=== PATIENT | female | born 2000 | race Hispanic/Latino ===

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

== ENCOUNTER 2020-09-13 00:01 | Emergency (ER) | payer MEDICAID ==
[~2020-09-13] VITALS: Ht 154.9 cm; Wt 52.2 kg
[~2020-09-13 00:01] MED LIST: PREN1TAB80 PO
[2020-09-13] MEDS ORDERED: OCTYL 2-CYANOACRYLATE 1 EACH TP ONE (02:45)
[2020-09-13 03:00] VITALS: BP 127/55
== END 2020-09-13 03:18 | disposition home or self-care (01) ==
LOC: EDH 01:25
DX: S01.81XA Laceration without foreign body of other part of head, initial encounter (principal); W22.8XXA Striking against or struck by other objects, initial encounter; Y93.89 Activity, other specified; Y92.89 Other specified places as the place of occurrence of the external cause; Y99.8 Other external cause status
CPT/HCPCS: 12011; 99282

== ENCOUNTER 2023-09-16 17:29 | Emergency (ER) | payer MEDICAID ==
[~2023-09-16] VITALS: Ht 152.4 cm; Wt 72.6 kg
[2023-09-16 18:02] LABS: BASOPHILS # (AUTO) 0.01 K/uL (0.00-0.20); BASOPHILS % (AUTO) 0.1 % (0.0-5.0); EOSINOPHILS # (AUTO) 0.07 K/uL (0.00-0.70); EOSINOPHILS % (AUTO) 0.7 % (0.0-8.0); HEMATOCRIT 38.6 % (36-48); IMMATURE GRANULOCYTE ABSOLUTE 0.03 K/uL (0-1); LYMPHOCYTES # (AUTO) 0.7 K/uL (1.0-4.8); LYMPHOCYTES % (AUTO) 7.1 % (21.0-51.0); MEAN CORPUSCULAR HEMOGLOBIN 27.7 pg (27.0-33.0); MEAN CORPUSCULAR HGB CONC 33.4 g/dL (32.0-36.0); MONOCYTES # (AUTO) 0.5 K/uL (0.1-1.0); MONOCYTES % (AUTO) 4.7 % (3.0-13.0); NEUTROPHILS % (AUTO) 87.1 % (40.0-77.0); PLATELET COUNT (AUTO) 185 K/uL (130-400); RED BLOOD CELL COUNT(AUTO) 4.65 MIL/uL (4.00-5.50); RED CELL DISTRIBUTION WIDTH 13.8 % (11.0-15.5); WHITE BLOOD COUNT (AUTO) 10.3 K/uL (4.8-10.8)
[2023-09-16 18:22] LABS: APPEARANCE,URINE CLEAR (CLEAR); BILIRUBIN,URINE NEGATIVE (NEGATIVE); COLOR,URINE LIGHT-YELLOW (YELLOW); GLUCOSE, URINE (UA) NEGATIVE (NEGATIVE); KETONES,URINE NEGATIVE (NEGATIVE); LEUKOCYTE ESTERASE ,URINE NEGATIVE Leu/uL (NEGATIVE); NITRATE,URINE NEGATIVE (NEGATIVE); OCCULT BLOOD,URINE NEGATIVE (NEGATIVE); PROTEIN,URINE 20 mg/dL (NEGATIVE); UROBILINOGEN,URINE 0.2 mg/dL (0.2-1.0)
[2023-09-16 18:23] LABS: ADD UA MICROSCOPIC YES
[2023-09-16 18:25] LABS: BACTERIA,URINE RARE /HPF (None Seen); MUCUS,URINE RARE LPF (None Seen); RBC,URINE 0-1 /HPF (0-1); SQUAMOUS EPITHELIAL CELL,UR FEW /HPF (0-2)
[2023-09-16 18:43] LABS: ALBUMIN 4.1 g/dL (3.5-5.0); POTASSIUM 3.7 mmol/L (3.5-5.1); TOTAL PROTEIN, SERUM 8.4 g/dL (6.0-8.3)
[2023-09-16 18:49] LABS: CREATININE 0.6 mg/dL (0.5-1.0)
[2023-09-16] MEDS: 0.9%NACL 1000ML 1,000 ML IV ONE (18:51)
[2023-09-16] MEDS ORDERED: FAMO-136 PO (19:25)
[2023-09-16] MEDS ORDERED: ONDA-243 PO (19:25)
[2023-09-16] MEDS: ONDANSETRON 4MG INJ IVP ONE (20:06)
[2023-09-16] MEDS: FAMOTIDINE 20MG VIAL IV ONE (20:06)
[2023-09-16] MEDS: KETOROLAC 15MG/ML VIAL (15MG/ML) IV ONE (20:07)
[2023-09-16 20:08] VITALS: BP 111/68; PULSE 100; RESP 18; O2SAT 98
== END 2023-09-16 20:25 | disposition home or self-care (01) ==
LOC: EDH 17:29
DX: K52.9 Noninfective gastroenteritis and colitis, unspecified (principal); R10.2 Pelvic and perineal pain; Z79.899 Other long term (current) drug therapy
CPT/HCPCS: 99284; 96374; 96375; 96361; 80053; 84702; 83690; 85025; 83605; 81001; 36415; 84145; J7030; J2405; J1885; S0028; J3490